=== PATIENT | male | born 1965 | race Caucasian/White ===

== ENCOUNTER 2016-06-10 12:02 | Observation (INO) | payer OTHER ==
[~2016-06-10] VITALS: Ht 172.7 cm; Wt 92.3 kg
[~2016-06-10 12:02] MED LIST: CELE-19 PO; GLUCTAB6 PO; KEFL500C; NAPR500T; PERC7.5T8; SULF800T; TAMSULOSIN 0.4 MG CAP PO SCH; VITA10002 PO
[2016-06-10] MEDS ORDERED: NS 1,000 ML IV SCH (14:55)
[2016-06-10 15:00] VITALS: BP 170/78
[2016-06-10] MEDS ORDERED: PERCOCET 5MG/325MG TAB PO PRN (15:00)
[2016-06-10] MEDS ORDERED: IBUPROFEN 600 MG TAB PO PRN (15:00)
[2016-06-10] MEDS ORDERED: MORPHINE 4 MG/ML 1ML SYRINGE IV PRN (15:00)
[2016-06-10] MEDS ORDERED: ONDANSETRON 4MG/2ML VIAL (J2405) IV PRN (15:00)
[2016-06-10] MEDS: NS 1,000 ML IV SCH ×2 (15:30→18:39)
[2016-06-10] MEDS ORDERED: MORP4SYR INJ (15:48)
[2016-06-10] MEDS ORDERED: FLOM5CAP PO (15:48)
[2016-06-10] MEDS ORDERED: COLA100C PO (15:48)
[2016-06-10] MEDS ORDERED: ALPR0.25 PO (15:48)
[2016-06-10] MEDS ORDERED: FISH1000 PO (15:48)
[2016-06-10] MEDS ORDERED: HYDR-3713 PO (15:48)
[2016-06-10] MEDS ORDERED: KETO30IN4 INJ (15:48)
--- NOTE | 2016-06-10 16:35 | HPE ---
DATE OF ADMISSION: 06/10/2016 CHIEF COMPLAINT: Right flank pain. HISTORY OF PRESENT ILLNESS: Mr. Campos is a pleasant 51-year-old gentleman accepted on transfer from [facility], has had multiple renal stones in the past and previously he was seen a few days ago at [facility] for flank pain, told that he had a stone in the right ureter, discharged on Motrin, Flomax and oxycodone. The pain has continued to be more bothersome. Presented to [facility] on 06/08/2016 and was admitted and given IV fluid hydration and continued with pain control. However, the patient continued to have some increasing problems and subsequently had developed hydronephrosis. Dr. Rosenthal, the on-call urologist, was contacted here at [facility] and was agreeable to take the patient to the operating room (OR) later today for cystoscopy and urologic manipulation to remove the renal stone. The patient denies any fevers, chills or rigors, shortness of breath, productive sputum, cough or hemoptysis. PAST MEDICAL HISTORY: Includes multiple renal stones, he has been relatively healthy otherwise. PAST SURGICAL HISTORY: Umbilical hernia repair, knee surgery, biceps reconstruction, left shoulder, right shoulder surgery. SOCIAL HISTORY: Denies tobacco use, alcohol use. No IV drug use. No recent travel. No sick contacts. Is and lives with his . FAMILY HISTORY: Noncontributory. ALLERGIES: No known drug allergies. CURRENT MEDICATIONS: Include: - Motrin 400 mg three times a day - Flomax 0.4 mg daily - oxycodone every 6 hours as needed for pain REVIEW OF SYSTEMS: CONSTITUTIONAL: The patient denies fevers, chills, rigors. No change in appetite. No weight loss. HEENT: No headache, lightheadedness, dizziness, blurry vision, double vision or tinnitus. No difficulty with speech or swallow. PULMONARY: No productive sputum, cough or hemoptysis. CARDIOVASCULAR: Denies chest pain, paroxysmal nocturnal dyspnea (PND), orthopnea or lower extremity edema. GASTROINTESTINAL (GI): No nausea, vomiting, diarrhea, bowel movements have been regular. No hematochezia or melena. GENITOURINARY (): No dysuria, frequency, however, he has had some hematuria and right flank pain. MUSCULOSKELETAL: No bone loss or joint pain, swelling or erythema. NEUROLOGIC: No paresthesias, paralysis. No weakness. No history of migraines or seizures. ENDOCRINE: Negative for diabetes. Negative for thyroid disorder. LYMPHATICS: No lumps, bumps, swelling in neck, axilla or groin. No night sweats or weight loss. HEMATOLOGY: No bleeding or bruising disorder. No prior venous thromboembolism. ONCOLOGY: No history of cancer. PSYCHIATRIC: Negative for depression. No suicidal ideation. No audiovisual hallucinations. 10-point review of systems complete, pertinent positives listed. PHYSICAL EXAMINATION: Temperature 96.8, pulse is 80 and regular, respiratory rate is 12, blood pressure 130/60. HEENT: Head is atraumatic, normocephalic. Eyes: Pupils equal, round, and reactive to light and accommodation. Throat clear. Mucous membranes moist. NECK: Supple. LUNGS: Clear to auscultation. HEART: Regular rate and rhythm. ABDOMEN: Soft. He does have some vague palpable tenderness with flank pain on the right. EXTREMITIES: No edema or calf tenderness. [place] strength is equal. No motor or sensory deficits. Cranial nerves II-XII grossly intact. LABORATORY DATA AND DIAGNOSTICS: Sent with him from [place]: CT abdomen and pelvis with contrast, moderate right-sided hydronephrosis caused by 4 mm obstructing stone in the proximal right ureter, extensive bilateral nephrolithiasis is also appreciated. White count 11.6, hemoglobin is 15.3 and platelets are 168, sodium 138, potassium 4.7, chloride 98, bicarbonate 28, BUN 15, creatinine 1.9, glucose 131, albumin 4.6. LFT shows a AST 19, ALT 15, alkaline phosphatase 55, total bilirubin is 9.4. Amylase was 53. CRP was 13.76, lipase 39, phosphorus 4.1, sedimentation rate was 11 and PTH 30. There is no accompanying urinalysis however will likely need to strain the urine and check for oxalates and other findings. IMPRESSION: Mr. Campos is a pleasant 51-year-old gentleman accepted on transfer as a medical patient from [facility] per the request of Dr. Rosenthal. He was admitted to the general medical floor and is planned for the operating room (OR) either later this evening or tomorrow. His last meal was at 1335 hours. He will need to be observed overnight and will continue with pain control and IV fluids as indicated. PROBLEM LIST: 1. Obstructive uropathy. 2. 4 mm nephrolithiasis in the right ureter. 3. History of anxiety found later in the interview. PLAN: The patient will be admitted to the medical floor with a consult by Dr. Rosenthal. Continue nothing by mouth, IV fluids at 150 mL an hour of normal saline. Continue pain control with as needed morphine for breakthrough pain, otherwise oral Percocet 1-2 tablets every 4 hours as needed, Motrin 600 mg three times a day as needed, and will continue with Flomax 0.4 mg daily. We will see how he does overnight. If the stone can be retrieved and he is doing well, we will try to advance his diet in the morning, however his renal colic does appear to be adequately controlled and most likely the hydronephrosis on the right is related to the obstructive uropathy. Deep venous thrombosis (DVT) prophylaxis with thromboembolism deterrents (TEDs) and sequentials, encouraged to ambulate. Tomorrow morning Dr. Kearns will take over on care and will see if he can be discharged as long as he is doing well and tolerating meals.
[2016-06-10] MEDS ORDERED: ceFAZolin 1GM INJ (J0690) IM SCH (17:15)
[2016-06-10] MEDS ORDERED: amLODIPine 5 MG TAB PO ONE (18:30)
[2016-06-10] MEDS: ceFAZolin SOD 1 GM in D5W MINI-BAG PLUS 50 ML IV SCH (18:38)
[2016-06-10 22:00] VITALS: BP 138/76
[2016-06-11] MEDS: ceFAZolin SOD 1 GM in D5W MINI-BAG PLUS 50 ML IV SCH ×2 (02:29→09:29)
[2016-06-11 06:00] VITALS: BP 128/86
[2016-06-11] MEDS: NS 1,000 ML IV SCH (06:09)
[2016-06-11 06:50] LABS: MEAN CORPUSCULAR HGB CONC 34.6 g/dl (32.0-36.5); MEAN CORPUSCULAR VOLUME 89.6 fl (80.0-96.0); RED CELL DISTRIBUTION WIDTH 12.3 % (11.5-14.5); WHITE BLOOD COUNT 6.6 K/mm3 (4.0-10.0)
[2016-06-11 07:02] LABS: ANION GAP 6 MEQ/L (8-16); BLOOD UREA NITROGEN 9 MG/DL (7-18); CALCIUM LEVEL 7.9 MG/DL (8.5-10.1); CARBON DIOXIDE LEVEL 27 MEQ/L (21-32); CHLORIDE LEVEL 111 MEQ/L (98-107); CREATININE FOR GFR 1.06 MG/DL (0.70-1.30); GLOMERULAR FILTRATION RATE > 60.0 (>56); GLUCOSE, FASTING 89 MG/DL (70-105); POTASSIUM SERUM 4.2 MEQ/L (3.5-5.1); SODIUM LEVEL 144 MEQ/L (136-145)
[2016-06-11 07:54] VITALS: BP 128/86
[2016-06-11] MEDS: PERCOCET 5MG/325MG TAB PO PRN ×2 (07:54→14:07)
[2016-06-11] MEDS ORDERED: amLODIPine 5 MG TAB PO SCH (09:00)
--- NOTE | 2016-06-11 09:31 | IPNPDOC ---
Assessment/Plan Date Seen The patient was seen on 06/11/16. Patient Summary 51 y/o M w/ an obstructing right ureteral stone. His pain is better today, but it unlikely that he has passed the stone. Plan/VTE VTE Prophylaxis Ordered?: Yes VTE Exclusion Mechanical Proph: N/A:VTE Prophy Ordered Plan - OR today for cystoscopy, right ureteroscopy with laser lithotripsy, and possible right ureteral stent placement - NPO until OR - patient should be ok for discharge home after surgery Subjective Review oF Systems Chief Complaint The patient is a 51-year-old male admitted with a reason for visit of R Ureteral Stone. Events since Last Encounter No acute events o/n. Patient notes that his pain has been better since around 2am in this morning. Denies nausea or vomiting. He has been straining his urine and has not passed a stone yet. Objective Physical Examination General Exam: : Alert: Cooperative: No Acute Distress Chest Exam: : Clear to auscultation: Normal air movement Heart Exam: Positive: Rate Normal, Regular Rhythm ABDOMEN EXAM: : SoftNo: Tenderness Skin Exam: : Nl turgor and temperature Psych Exam: : Mental status NL: Mood NL Vital Signs/I&O Vital Signs Date Time Temp Pulse Resp B/P Pulse Ox O2 Delivery O2 Flow Rate FiO2 06/11/16 09:07 16 06/11/16 07:54 63 128/86 06/11/16 06:00 97.2 96 Room Air I&O- Last 24 Hours up to 6 AM 06/11/16 06:00 Intake Total 2670 ml Output Total 2500 ml Balance 170 ml Laboratory Data Labs 24H Laboratory Tests 2 06/10/16 18:10: Urine Amorphous Sediment , Urine Appearance CLEAR, Urine Color YELLOW, Urine pH 6.0, Urine Specific [place] 1.005, Urine Protein NEGATIVE, Urine Glucose (UA) NEGATIVE, Urine Ketones NEGATIVE, Urine Urobilinogen 0.2, Urine Bilirubin NEGATIVE, Urine Leukocyte Esterase NEGATIVE, Urine Bacteria (Auto) 1+H, Urine Blood 3+H, Urine Calcium Carbonate Cryst(Auto) , Urine Calcium Oxalate Cryst ( Auto) , Urine Calcium Phosphate Milli (Auto) , Urine Cellular Casts , Urine Cystine Crystals , Urine Granular Casts (Auto) , Urine Hyaline Casts (Auto) 0, Urine Leucine Crystals , Urine Mucus (Auto) SMALL, Urine Nitrite NEGATIVE, Urine Oval Fat Bodies (Auto) , Urine RBC (Auto) 17H, Urine Renal Epithelial Cells , Urine Sperm (Auto) , Urine Squamous Epithelial Cells 0, Urine Transitional Epithelial Cells , Urine Trichomonas (Auto) , Urine Triple Phosphate Cryst (Auto) , Urine Tyrosine Crystals , Urine Uric Acid Crystals ( Auto) , Urine WBC (Auto) 3, Urine Waxy Casts (Auto) , Urine Yeast-Like Cells ( Auto) 06/11/16 06:35: Anion Gap 6L, Blood Urea Nitrogen 9, Creatinine 1.06, Sodium Level 144, Potassium Level 4.2, Chloride Level 111H, Carbon Dioxide Level 27, Calcium Level 7.9L, Glomerular Filtration Rate > 60.0 CBC/BMP Laboratory Tests 06/11/16 06:35 Calcium Level 7.9 L, Red Blood Count 4.19 L, Mean Corpuscular Volume 89.6, Mean Corpuscular Hemoglobin 31.0, Mean Corpuscular Hemoglobin Concent 34.6, Red Cell Distribution Width 12.3 Microbiology Microbiology 06/10/16 Urine Culture, Received Pending TULIO CUNNINGHAM MD Jun 11, 2016 09:30
[2016-06-11] MEDS ORDERED: MIDAZOLAM INJ 2 MG/2 ML VIAL (J2250) As Ordered ONE (10:37)
[2016-06-11] MEDS ORDERED: fentaNYL 100 MCG/2 ML INJECTION (J3010) As Ordered ONE (10:37)
[2016-06-11] MEDS ORDERED: PROPOFOL 200 MG/20 ML VIAL As Ordered ONE (10:37)
[2016-06-11] MEDS ORDERED: LIDOCAINE 2% INJ 100 MG/5 ML SDV (FOR ANES.) As Ordered ONE (10:37)
[2016-06-11] MEDS ORDERED: CONRAY-60 60% 50ML VIAL (Q9961) As Ordered ONE (11:02)
[2016-06-11] MEDS ORDERED: KETOROLAC 60 MG/2 ML VIAL (J1885) As Ordered ONE (11:09)
[2016-06-11] MEDS ORDERED: ONDANSETRON 4MG/2ML VIAL (J2405) As Ordered ONE (11:09)
--- NOTE | 2016-06-11 12:27 | REP ---
Retrograde pyelogram: Two views. History: Kidney stone. 20 seconds of fluoroscopy time is reported. Findings: A sequence of two fluoroscopically obtained, last image hold, radiographs of the abdomen document double pigtail ureteral stent placement. No laterality markers are seen. Signed by Jeff Collins MD 06/11/2016 02:30 P
[2016-06-11] MEDS ORDERED: fentaNYL 100 MCG/2 ML INJECTION (J3010) IV PRN (12:45)
[2016-06-11] MEDS ORDERED: LR 1,000 ML IV SCH (12:45)
[2016-06-11] MEDS ORDERED: PERCOCET 5MG/325MG TAB PO PRN (12:45)
[2016-06-11] MEDS ORDERED: ONDANSETRON 4MG/2ML VIAL (J2405) IV PRN (12:45)
[2016-06-11] MEDS ORDERED: NS 1,000 ML IV SCH (12:45)
[2016-06-11 13:30] VITALS: BP 182/91
[2016-06-11 14:00] VITALS: BP 157/94
[2016-06-11] MEDS ORDERED: OXYB5TA PO (14:05)
--- NOTE | 2016-06-11 14:16 | DS.PDOC ---
Discharge Summary General Date of Admission Jun 10, 2016 at 15:03 Date of Discharge 06/11/2016 Discharge Summary DATE OF ADMISSION: 06/10/2016 DATE OF DISCHARGE: 06/11/2016 PRIMARY CARE PHYSICIAN: Unknown DISCHARGE DIAGNOS(E)S: Obstructing nephrolithiasis of the right ureter, status post stent placement HPI & HOSPITAL COURSE: 51-year-old male with history of multiple renal stones who was transferred from an outside hospital for an obstructing renal stone that was causing right hydronephrosis. 1. Obstructing renal stone: The patient went to the OR today with Dr. Pugh for stent placement. We appreciate his help with management of this issue. He has cleared the patient for discharge and called in oxybutinin to his pharmacy. The patient reports that he already has oxycodone at home from last week. 2. Right hydronephrosis: At this time, kidney function remains normal. I expect the hydronephrosis to resolve now that the stent is in place. 3. Elevated blood pressure: BP was noted to be elevated upon admission. While this certainly could've been secondary to pain, the blood pressure responded well to one dose of norvasc 5mg. At this time, since BP is now well controlled , I will not send him home on norvasc, but he does need to have his BP checked with his PCP within one week. DVT prophylaxis: Teds and SCDs PHYSICAL EXAMINATION ON DISCHARGE: Vitals: Vital Sign - Last 24 Hours 06/10/16 06/10/16 06/10/16 06/11/16 15:00 18:38 22:00 06:00 Temp 96.7 96.5 97.2 Pulse 57 57 63 63 Resp 16 18 18 B/P 170/78 170/78 138/76 128/86 Pulse Ox 95 98 96 O2 Delivery Room Air Room Air Room Air 06/11/16 06/11/16 06/11/16 06/11/16 07:54 07:54 07:55 09:07 Pulse 63 Resp 16 16 16 B/P 128/86 06/11/16 06/11/16 06/11/16 06/11/16 12:06 12:20 12:22 12:25 Temp 97.5 Pulse 65 Resp 14 16 B/P 128/69 121/60 123/59 Pulse Ox 94 92 O2 Delivery Nasal Cannula Room Air O2 Flow Rate 2 06/11/16 06/11/16 06/11/16 06/11/16 12:27 12:30 12:32 12:33 Pulse 62 59 59 B/P 119/71 Pulse Ox 92 92 92 06/11/16 06/11/16 06/11/16 06/11/16 12:35 12:38 12:40 12:43 Pulse 61 63 Resp 18 B/P 111/68 106/64 Pulse Ox 93 93 O2 Delivery Room Air 06/11/16 06/11/16 06/11/16 06/11/16 12:46 12:48 12:51 12:53 Pulse 61 60 B/P 125/62 126/75 Pulse Ox 94 95 06/11/16 06/11/16 06/11/16 06/11/16 12:55 12:56 13:00 13:01 Pulse 62 57 Resp 14 B/P 125/60 118/64 Pulse Ox 95 96 O2 Delivery Room Air 06/11/16 06/11/16 06/11/16 06/11/16 13:05 13:06 13:10 13:30 Temp 97.3 Pulse 58 Resp 18 18 B/P 125/71 Pulse Ox 97 O2 Delivery Room Air 06/11/16 14:07 Resp 18 General: Awake, alert, no acute distress HEENT: Normocephalic, atraumatic, extraocular movements intact CV: Regular rate and rhythm, no murmurs rubs or gallops Lungs: Clear to auscultation bilaterally Abd: Soft, nontender, positive bowel sounds Extremities: No edema Neuro: Alert and oriented 3 Psych: Normal mood and affect DISPOSITION: Home DISCHARGE INSTRUCTIONS: Follow-up with Dr. Pugh; his office will contact you. Follow-up with PCP within one week; needs BP check. If symptoms return, or if you experience worsening of your symptoms, please call your doctor or return to the emergency department. ITEMS THAT NEED OUTPATIENT FOLLOWUP: BP was initially elevated in the hospital, but then improved. He needs a blood pressure check with his PCP. Patient was seen and examined by me on the day of discharge, and I spent a total time of greater than 30 minutes on this discharge. Vital Signs/I&Os Vital Signs Date Time Temp Pulse Resp B/P Pulse Ox O2 Delivery O2 Flow Rate FiO2 06/11/16 14:07 18 06/11/16 13:10 97.3 Room Air 06/11/16 13:06 58 97 06/11/16 13:05 125/71 06/11/16 12:06 2 I&O- Last 24 Hours up to 6 AM 06/11/16 05:59 Intake Total 1720 ml Output Total 2200 ml Balance -480 ml Laboratory Data Labs 24H Laboratory Tests 2 06/10/16 18:10: Urine Amorphous Sediment , Urine Appearance CLEAR, Urine Color YELLOW, Urine pH 6.0, Urine Specific [place] 1.005, Urine Protein NEGATIVE, Urine Glucose (UA) NEGATIVE, Urine Ketones NEGATIVE, Urine Urobilinogen 0.2, Urine Bilirubin NEGATIVE, Urine Leukocyte Esterase NEGATIVE, Urine Bacteria (Auto) 1+H, Urine Blood 3+H, Urine Calcium Carbonate Cryst(Auto) , Urine Calcium Oxalate Cryst ( Auto) , Urine Calcium Phosphate Milli (Auto) , Urine Cellular Casts , Urine Cystine Crystals , Urine Granular Casts (Auto) , Urine Hyaline Casts (Auto) 0, Urine Leucine Crystals , Urine Mucus (Auto) SMALL, Urine Nitrite NEGATIVE, Urine Oval Fat Bodies (Auto) , Urine RBC (Auto) 17H, Urine Renal Epithelial Cells , Urine Sperm (Auto) , Urine Squamous Epithelial Cells 0, Urine Transitional Epithelial Cells , Urine Trichomonas (Auto) , Urine Triple Phosphate Cryst (Auto) , Urine Tyrosine Crystals , Urine Uric Acid Crystals ( Auto) , Urine WBC (Auto) 3, Urine Waxy Casts (Auto) , Urine Yeast-Like Cells ( Auto) 06/11/16 06:35: Anion Gap 6L, Blood Urea Nitrogen 9, Creatinine 1.06, Sodium Level 144, Potassium Level 4.2, Chloride Level 111H, Carbon Dioxide Level 27, Calcium Level 7.9L, Glomerular Filtration Rate > 60.0 06/11/16 11:34: CBC/BMP Laboratory Tests 06/11/16 06:35 Calcium Level 7.9 L, Red Blood Count 4.19 L, Mean Corpuscular Volume 89.6, Mean Corpuscular Hemoglobin 31.0, Mean Corpuscular Hemoglobin Concent 34.6, Red Cell Distribution Width 12.3 Microbiology Microbiology 06/10/16 Urine Culture - Final, Complete Discharge Medications Scheduled (Glucosamine Chondroitin) 1 Tab Tab 1 TAB PO BID (Reported) HOME MED Cyanocobalamin (Vitamin B-12) 1,000 Mcg Tab 1,000 MCG PO DAILY (Reported) HOME MED Fish Oil (Fish Oil) 1,000 Mg Cap 1,000 MG PO DAILY (Reported) HOME MED Oxybutynin Chloride (Oxybutynin Chloride) 5 Mg Tab 5 MG PO DAILY Allergies Coded Allergies: No Known Drug Allergy (Verified Allergy, Unknown, 07/08/12) SHAMAR AVALOS Jun 11, 2016 14:15
[2016-06-11 15:00] VITALS: BP 129/71
[2016-06-11] MEDS ORDERED: TAMSULOSIN 0.4 MG CAP PO SCH (21:00)
--- NOTE | 2016-06-12 07:30 | CR ---
DATE OF CONSULTATION: 06/10/2016 ATTENDING PHYSICIAN: Dr. Armando Dill. REASON FOR CONSULTATION: This is a 51-year-old white male with an obstructing right mid ureteral calculus. Asked to evaluate the patient and treat . CLINICAL HISTORY: This is a 51-year-old white male who initially began having pain approximately 4 days ago. The patient apparently was seen at the local emergency room and was discharged with conservative treatment. He subsequently returned to [facility] within 24 hours with similar complaint. There, CT scan was repeated which showed stone overlying the distribution of the right proximal ureter. It measured approximately 3-4 mm. Patient was hospitalized because of severity of his pain. Patient was kept there up until he found out that the urologist was not going to be available until Saturday and then requested to be transferred to [facility]. Patient was transferred here. X-rays were reviewed which showed findings consistent with right mid proximal ureteral calculus measuring approximately 3-4 mm. Patient has had episodes of ureteroscopic stone extraction in the past. Patient has multiple small stones overlying the distribution of both kidneys. At the time of presentation here, the patient denies fever. Patient denies gross hematuria. Patient denies associated urinary tract infection, "dysuria". MEDICATIONS: - Flomax - oxycodone ALLERGIES: No known drug allergies. PAST MEDICAL HISTORY: 1. History of nephrolithiasis. 2. Multiple operations on joints. PAST SURGICAL HISTORY: 1. Status post two operations on right shoulder, two operations on left shoulder. 2. One operation on left knee. 3. One operation on left wrist. 4. Patient also had ureteroscopic stone extraction. FAMILY HISTORY: Father with bladder cancer. Mother with hypertension. SOCIAL HISTORY: Patient admits to alcohol usage but denies tobacco usage. Patient is with two children. REVIEW OF SYSTEMS: Patient states fairly good health up until this presentation with right sided flank pain. Pulmonary quintana, denies any shortness of breath. Cardiovascular quintana, denies any chest pain. GI: Denies symptoms of gastroesophageal reflux disease (GERD). : Has had history of kidney stones in the past. Patient stated he recently had a PSA drawn which was within normal limits. (Does not recall the actual number). Neurologically, denies any seizure disorder. Psychiatric quintana, denies any functional problems. PHYSICAL EXAMINATION: Reveals well nourished white male following the administration of analgesics. Vital signs with a blood pressure of 170/78 with a pulse of 57, temperature of 96.7, and respiratory rate of 16. Oxygen sat on room air 95%. HEENT: Unremarkable. Lungs: Clear to auscultation on percussion. Heart: Regular rate and rhythm. Abdomen: Soft. Good bowel sounds. Back: No costovertebral angle (CVA) tenderness. Extremities: Full range of motion. Neurologically, he is alert and oriented times three. LABS: CBC and BMP that were done elsewhere that were within normal limits. Urinalysis was pending at the time of this dictation. CT scan as described above showed multiple small stones overlying distribution of both kidneys but more important, a 4 mm stone is causing partial obstruction of the right kidney which result in mild right hydroureteronephrosis down to the mid ureter. IMPRESSION: 1. Right renal colic. 2. Right hydroureteronephrosis. 3. Right mid to proximal ureteral calculus. COMORBIDITIES INCLUDE: 1. Bilateral renal calculi. 2. Multiple joint surgeries to include both shoulders, left knee, as well as left wrist. PLAN: 1. Agree with admission. 2. Strain all urine. 3. Parenteral hydration as well as oral hydration. 4. Add Flomax (done). 5. Will proceed with ureteroscopic stone extraction and laser polarization of the stone and stent placement if patient's urine appears to be normal on urinalysis.
--- NOTE | 2016-06-12 10:40 | RO ---
DATE OF PROCEDURE: 06/11/2016 PREPROCEDURE DIAGNOSIS: Right kidney and ureteral stones. POSTPROCEDURE DIAGNOSIS: Right kidney and ureteral stones. PROCEDURE: Cystoscopy, right ureteroscopy with laser lithotripsy and basket extraction of stones, right retrograde pyelogram with intraoperative interpretation of images, right ureteral stent placement. SURGEON: Boris Pugh MD [employer] CONSULTANT AND DESIGNER: None. ANESTHESIA: General. OPERATIVE INDICATIONS: This is a 51-year-old male who has had several days of a right flank pain and was found to have an obstructing 6 mm proximal right ureteral stone, as well as smaller nonobstructing right kidney stones, recently. It was recommended he be brought to the operating room today for treatment. DESCRIPTION OF PROCEDURE: The patient was brought to the operating room, and general anesthesia was induced. Prophylactic antibiotics were infused. He was then placed in the dorsal lithotomy position and prepped and draped in the usual sterile fashion. A rigid cystoscope was inserted into the urethral meatus and advanced into the bladder. A guidewire was then advanced up the right collecting system. The wire was then utilized to advance a ureteral access sheath up into the right collecting system. The stylet was then removed, and the wire was secured to the drape to serve as a safety wire. I then went up the access sheath with the flexible ureteroscope, and within the ureter, no stones were seen, indicating that the obstructing stone had been pushed back up into the kidney with the wire. I then examined the kidney thoroughly, and within an upper pole calyx, the 6 mm stone was seen. This stone was then fragmented into smaller pieces using a 200 micron laser fiber. All the pieces were then removed with a stone basket. I then examined the remainder of the kidney, and a few additional small stones were seen, all of them measuring less than 2 mm in size. Since the stones were so small, I did not try to remove them, as they would probably pass without difficulty. At this point, a retrograde pyelogram was performed, and it was notable for mild to moderate right hydronephrosis with no extravasation. At this point, the ureteral access sheath was removed, along with the ureteroscope, and no stones were seen within the ureter. I then utilized the previously-placed wire to advance a 6-Macedonian by 22-32 cm double J ureteral stent up into the right collecting system. The wire was then removed, and there were adequate curls of the stent in the right renal pelvis and in the bladder. The bladder was then emptied of all fluid, and this marked the conclusion of the procedure. The patient was then taken out of the dorsal lithotomy position, awakened from anesthesia, and transported to the recovery room in stable condition. ESTIMATED BLOOD LOSS: 0 mL. COMPLICATIONS: None. SPECIMENS: Kidney stone fragments. PLAN: The patient will be discharged home if his pain is well controlled. I will have him followup in the clinic in 1-2 weeks for stent removal. ROXANNA
== END 2016-06-11 16:10 | disposition home or self-care (01) ==
LOC: M MS5PR 15:03
PROVIDERS: ADMIT Hospitalist; ATTEND Hospitalist
DX: N20.1 Calculus of ureter (principal); N20.0 Calculus of kidney; N13.30 Unspecified hydronephrosis; R03.0 Elevated blood-pressure reading, without diagnosis of hypertension; E78.4 Other hyperlipidemia; G47.30 Sleep apnea, unspecified; Z79.899 Other long term (current) drug therapy
CPT/HCPCS: 36415; 52352; 52356; 74420; 80048; 81001; 82360; 85027; 87086; 88300; 96374; 96376; C1726; C1894; C2617; J0690; J1885; J2250; J2405; J3010; Q9961

== ENCOUNTER → 2016-09-10 | Outpatient (CLI) | payer OTHER ==
[~2016-09-10] MED LIST changes: +ALPR0.25 PO; +COLA100C3 PO; +FISH1000 PO; +FLOM5CAP PO; +HYDR-3713 PO; +KETO30IN4 INJ; +MORP4SYR INJ; +OXYB5TA PO; -TAMSULOSIN 0.4 MG CAP PO SCH
--- NOTE | 2016-09-10 16:30 | REP ---
MR BRAIN WITHOUT AND WITH CONTRAST: HISTORY: Abnormal MR brain. CONTRAST: ProHance 17.6 mL. COMPARISON: 12/06/2014. Scattered punctate areas of increased signal intensity on T2 weighted images are present in the periventricular white and subcortical white matter. This represents small vessel ischemic disease. There is no intraparenchymal hemorrhage, infarct, mass or midline shift. A small developmental venous anomaly is present in the posteromedial left frontal lobe and genu of the corpus callosum. There is no abnormal enhancement. The ventricular system is normal in appearance. There is no extracerebral collection. Minimal mucosal thickening is present in the left maxillary sinus. IMPRESSION: Minimal small vessel ischemic disease. Signed by Kyle Rodriguez MD 09/10/2016 04:41 P
== END ==
LOC: M RAD 12:27
PROVIDERS: ATTEND Family Medicine
DX: I73.9 Peripheral vascular disease, unspecified (principal)

== ENCOUNTER → 2017-11-15 | Outpatient (CLI) | payer OTHER | LOC: M CARPUL 08:11 | DX: R07.9 Chest pain, unspecified (principal) | CPT/HCPCS: 93306 ==

== ENCOUNTER 2020-12-06 10:13 | Day surgery (SDC) | payer OTHER ==
[~2020-12-06] VITALS: Ht 175.3 cm; Wt 83.0 kg
[~2020-12-06 10:13] MED LIST changes: +ATOR80TA59 PO; -CELE-19 PO; +CELE1CAP4 PO; -COLA100C3 PO; +COLA100C5 PO; +CYAN100049 PO; +ECOT81TA5 PO; +FLOM0.4C39 PO; -FLOM5CAP PO; +METO1TAB7 PO; +MORP4INJ5 INJ; -MORP4SYR INJ; +NS 1,000 ML IV ONE; -OXYB5TA PO; +OXYB5TAB10 PO; +PRAS10TA2 PO; -VITA10002 PO
[2020-12-06] MEDS ORDERED: LIDOCAINE 1% MDV 20ML VIAL As Ordered ONE (12:52)
[2020-12-06] MEDS ORDERED: propofoL 200 MG/20 ML VIAL As Ordered ONE (12:52)
[2020-12-06 13:15] VITALS: BP 142/92
== END 2020-12-06 13:25 | disposition home or self-care (01) ==
LOC: M OPP 10:13
PROVIDERS: ATTEND Internal Medicine Gastroenterology
DX: Z86.010 Personal history of colon polyps (principal); Z80.0 Family history of malignant neoplasm of digestive organs; K64.8 Other hemorrhoids; I25.2 Old myocardial infarction; I10 Essential (primary) hypertension; E78.5 Hyperlipidemia, unspecified; M19.90 Unspecified osteoarthritis, unspecified site; G47.30 Sleep apnea, unspecified; F17.220 Nicotine dependence, chewing tobacco, uncomplicated; Z95.5 Presence of coronary angioplasty implant and graft; Z79.82 Long term (current) use of aspirin; Z79.899 Other long term (current) drug therapy; Z82.49 Family history of ischemic heart disease and other diseases of the circulatory system

== ENCOUNTER → 2023-05-03 | Outpatient (CLI) | payer OTHER ==
[~2023-05-03] MED LIST changes: -GLUCTAB6 PO; +GLUCTAB7 PO; -NS 1,000 ML IV ONE; -OXYB5TAB10 PO; +OXYB5TAB11 PO
[2023-05-03 14:04] LABS: BASO % 0.6 % (0.0-1.0); EOS # 0.1 10^3/uL (0.0-0.5); EOS % 2.2 % (0.0-3.0); HEMATOCRIT 44.6 % (42.0-52.0); HEMOGLOBIN 14.7 g/dl (13.5-17.5); LYMPH # 1.4 10^3/uL (1.5-5.0); LYMPH % 22.7 % (24.0-44.0); MEAN CORPUSCULAR HEMOGLOBIN 30.5 pg (27.0-33.0); MEAN CORPUSCULAR VOLUME 92.5 fl (80.0-96.0); MONO # 0.6 10^3/uL (0.0-0.8); MONO % 9.7 % (2.0-8.0); NEUTROPHILS # 4.1 10^3/uL (1.5-8.5); NEUTROPHILS % 64.6 % (36.0-66.0); PLATELET COUNT, AUTOMATED 206 10^3/uL (150-450); RED BLOOD COUNT 4.82 10^6/uL (4.30-6.10); WHITE BLOOD COUNT 6.3 10^3/uL (4.0-10.0)
[2023-05-03 14:23] LABS: ERYTHROCYTE SEDIMENTATION RATE 18 mm/hr (0-20)
[2023-05-03 14:30] LABS: THYROXINE (T4) 9.3 UG/DL (4.5-10.9)
[2023-05-03 14:31] LABS: ALBUMIN 3.9 G/DL (3.2-5.2); ALKALINE PHOSPHATASE 61 U/L (46-116); ALT/SGPT 26 U/L (7.0-40); AST/SGOT 25 U/L (<34); BILIRUBIN,TOTAL 0.8 MG/DL (0.3-1.2); BLOOD UREA NITROGEN 16 MG/DL (9-23); CALCIUM LEVEL 8.8 MG/DL (8.5-10.1); CARBON DIOXIDE LEVEL 28 MMOL/L (20-31); CHLORIDE LEVEL 107 MMOL/L (98-107); CREATININE FOR GFR 1.12 MG/DL (0.70-1.30); GLOMERULAR FILTRATION RATE > 60.0 (>56); GLUCOSE, FASTING 88 MG/DL (60-100); POTASSIUM SERUM 4.5 MMOL/L (3.5-5.1); SODIUM LEVEL 140 MMOL/L (136-145); THYROID STIMULATING HORMONE 0.942 uIU/ML (0.55-4.78); TOTAL PROTEIN 6.7 G/DL (5.7-8.2)
[2023-05-03 14:32] LABS: FOLATE 17.4 NG/ML (>5.4)
[2023-05-03 14:33] LABS: RHEUMATOID FACTOR QUANT < 3.5 IU/ML (<14); VITAMIN B12 LEVEL 362 PG/ML (211-911)
[2023-05-03 14:35] LABS: FREE THYROXINE INDEX 3.5 % (1.4-3.8); T UPTAKE 38.1 % (22.5-37.0)
== END ==
LOC: M PLALAB 09:38
PROVIDERS: ATTEND Psychiatry & Neurology Neurology
DX: R41.3 Other amnesia (principal); E07.9 Disorder of thyroid, unspecified; D51.9 Vitamin B12 deficiency anemia, unspecified